=== PATIENT | male | born 1940 | race Caucasian/White ===

== ENCOUNTER 2017-11-04 16:21 | Inpatient (IN) | payer MEDICARE, OTHER ==
[2017-11-04] VITALS (13 sets, daily range): BP systolic 125–143; BP diastolic 66–86
[~2017-11-04] VITALS: Ht 172.7 cm; Wt 79.0 kg
[~2017-11-04 16:21] MED LIST: AMLO2.5T2 PO; DOCU250C4 PO; EZET10TA14 PO; HYDR-565 PO; LEVO750T21 PO; METF500T PO; PANT40TA4 PO; SENN-161 PO
[2017-11-04] MEDS ORDERED: BUPIVAcaine/PF 2.5 mg/ml (0.25%) 30ml vial ONE (17:03)
[2017-11-04] MEDS ORDERED: ceFAZolin 1000mg inj ONE ×3 (17:03→18:13)
[2017-11-04 17:37] LABS: BASOPHILS % (AUTO) 0.1 % (0-1); EOSINOPHILS # (AUTO) 0.1 X10'3 (0-0.9); EOSINOPHILS % (AUTO) 1.6 % (0-6); HEMATOCRIT 40.8 % (42.0-52.0); LYMPHOCYTES % (AUTO) 29.3 % (21-51); MEAN CORPUSCULAR HEMOGLOBIN 30.7 PG (27.0-31.0); MEAN CORPUSCULAR HGB CONC 34.3 % (33.0-36.5); MEAN CORPUSCULAR VOLUME 89.6 FL (78-98); MEAN PLATELET VOLUME 7.8 FL (7.4-10.4); MONOCYTES # (AUTO) 0.7 X10'3 (0-0.9); MONOCYTES % (AUTO) 11.1 % (2-12); NEUTROPHILS # (AUTO) 3.9 X10'3 (1.8-7.7); NEUTROPHILS % (AUTO) 57.9 % (42-75); PLATELET COUNT 224 X10'3 (140-440); RED BLOOD COUNT 4.55 X10'6 (4.70-6.10); RED CELL DISTRIBUTION WIDTH 15.2 % (11.5-14.5); WHITE BLOOD COUNT 6.7 X10'3 (4.5-11.0)
[2017-11-04 17:44] LABS: PROTHROMBIN TIME 10.3 SECONDS (9.0-12.0)
[2017-11-04 17:50] LABS: ALANINE AMINOTRANSFERASE 64 U/L (12-78); ALBUMIN 3.8 G/DL (3.4-5.0); ALKALINE PHOSPHATASE 93 IU/L (46-116); ANION GAP 11 (8-16); ASPARTATE AMINO TRANSFERASE 30 U/L (10-37); BILIRUBIN,TOTAL 1.2 MG/DL (0.1-1.0); BLOOD UREA NITROGEN 25 MG/DL (7-18); BUN/CREATININE RATIO 20.3 (5.4-32.0); CALCIUM 9.1 MG/DL (8.5-10.1); CHLORIDE 106 MMOL/L (99-107); CREATININE 1.23 MG/DL (0.60-1.10); GLUCOSE 114 MG/DL (70-104); POTASSIUM 3.7 MMOL/L (3.5-5.1); SODIUM 144 MMOL/L (135-145); TOTAL CARBON DIOXIDE 27.5 MMOL/L (24-32); TOTAL PROTEIN 7.6 G/DL (6.4-8.2); eGFR 57 ML/MIN
[2017-11-04] MEDS ORDERED: sevoflurane 250ml liquid IH ONE (17:53)
[2017-11-04] MEDS ORDERED: ePHEDrine 50MG/ML INJ. ONE (17:53)
[2017-11-04] MEDS ORDERED: fentaNYL/PF 50MCG/1 ML 2ML syringe ONE ×2 (17:54→18:36)
[2017-11-04] MEDS ORDERED: LIDOcaine 2% (20mg/ml) 5ml vial ONE (17:56)
[2017-11-04] MEDS ORDERED: dexamethasone sod phosphate 4mg/ml inj. ONE (18:13)
[2017-11-04] MEDS ORDERED: rocuronium 10mg/ml inj IV ONE (18:13)
[2017-11-04] MEDS ORDERED: propofol inj 60 ML IV ONE (18:13)
[2017-11-04] MEDS ORDERED: normal saline 1000ml 1,000 ML IV ONE (18:43)
[2017-11-04] MEDS ORDERED: HYDROmorphone inj. 0.5 MG/0.5 ML DISP.SYRIN IV PRN ×2 (18:45→21:10)
[2017-11-04] MEDS ORDERED: ondansetron/PF 4mg/2ml inj IV PRN (18:45)
[2017-11-04] MEDS ORDERED: morphine 4 MG/ML inj SYRINge IV PRN (18:45)
[2017-11-04] MEDS ORDERED: labetalol 5mg/ml 20ml inj. IV ONE (19:05)
[2017-11-04] MEDS ORDERED: ondansetron/PF 4mg/2ml inj ONE (19:05)
[2017-11-04] MEDS ORDERED: glycopyrrolate 0.2mg/ml inj ONE (19:05)
[2017-11-04] MEDS ORDERED: neostigmine methylsulfate 1 MG/ML 10ml vial ONE (19:05)
[2017-11-04] MEDS ORDERED: HYDROcodone/acetaminophen 10/325mg tab PO PRN (19:20)
[2017-11-04] MEDS ORDERED: acetaminophen 325mg tablet PO PRN ×2 (20:10→20:15)
[2017-11-04] MEDS ORDERED: HYDROmorphone 1 mg/ml syringe IV PRN (21:10)
[2017-11-04] MEDS ORDERED: HYDROmorphone inj. 0.5 MG/0.5 ML DISP.SYRIN ONE (21:49)
[2017-11-05] VITALS: BP 100/70
[2017-11-05] MEDS: ceFAZolin inj. 1,000 MG in normal saline 100ml IV soln 100 ML IV SCH ×2 (00:01→08:51)
[2017-11-05 00:10] VITALS: BP 129/69
[2017-11-05] MEDS ORDERED: HYDROmorphone inj. 0.5 MG/0.5 ML DISP.SYRIN ONE ×2 (02:15→05:55)
[2017-11-05 05:02] LABS: BASOPHILS % (AUTO) 0.3 % (0-1); EOSINOPHILS % (AUTO) 0.8 % (0-6); HEMATOCRIT 35.4 % (42.0-52.0); LYMPHOCYTES # (AUTO) 1.1 X10'3 (1.1-4.8); LYMPHOCYTES % (AUTO) 21.1 % (21-51); MEAN CORPUSCULAR HEMOGLOBIN 30.7 PG (27.0-31.0); MEAN CORPUSCULAR VOLUME 90.4 FL (78-98); MONOCYTES # (AUTO) 0.4 X10'3 (0-0.9); MONOCYTES % (AUTO) 7.4 % (2-12); NEUTROPHILS # (AUTO) 3.8 X10'3 (1.8-7.7); NEUTROPHILS % (AUTO) 70.4 % (42-75); PLATELET COUNT 183 X10'3 (140-440); RED BLOOD COUNT 3.92 X10'6 (4.70-6.10); RED CELL DISTRIBUTION WIDTH 15.6 % (11.5-14.5); WHITE BLOOD COUNT 5.4 X10'3 (4.5-11.0)
[2017-11-05 07:30] VITALS: BP 132/63
[2017-11-05 11:00] VITALS: BP 132/58
== END 2017-11-05 16:42 | disposition home or self-care (01) | DRG 352 ==
LOC: ER 16:22 → SUR 3N 19:18
PROVIDERS: ADMIT Surgery; ATTEND Surgery
PROC: 0YU54JZ Supplement Right Inguinal Region with Synthetic Substitute, Percutaneous Endoscopic Approach (ICD-10-PCS; principal; 2017-11-04 17:53)
DX: K40.30 Unilateral inguinal hernia, with obstruction, without gangrene, not specified as recurrent (principal); I10 Essential (primary) hypertension; R73.03 Prediabetes; Z90.49 Acquired absence of other specified parts of digestive tract; Z79.84 Long term (current) use of oral hypoglycemic drugs; Z79.899 Other long term (current) drug therapy; Z85.038 Personal history of other malignant neoplasm of large intestine; Z87.891 Personal history of nicotine dependence; Z85.46 Personal history of malignant neoplasm of prostate
CPT/HCPCS: 36415; 71045; 80053; 82948; 83036; 85025; 85610; 87070; A4315; A6258; C1727; C1781; J0690; J1100; J1170; J2001; J2405; J2704; J2710; J3010; J3490; J7030; J7120

== ENCOUNTER 2017-11-19 18:23 | Inpatient (IN) | payer MEDICARE, OTHER ==
[~2017-11-19] VITALS: Ht 172.7 cm; Wt 81.0 kg
[2017-11-19 19:25] LABS: BASOPHILS % (AUTO) 0.1 % (0-1); EOSINOPHILS % (AUTO) 0.2 % (0-6); HEMATOCRIT 34.5 % (42.0-52.0); HEMOGLOBIN 11.6 g/dl (14.0-17.9); LYMPHOCYTES # (AUTO) 1.4 X10'3 (1.1-4.8); LYMPHOCYTES % (AUTO) 5.7 % (21-51); MEAN CORPUSCULAR HEMOGLOBIN 30.1 PG (27.0-31.0); MEAN CORPUSCULAR HGB CONC 33.6 % (33.0-36.5); MEAN CORPUSCULAR VOLUME 89.5 FL (78-98); MEAN PLATELET VOLUME 6.9 FL (7.4-10.4); MONOCYTES # (AUTO) 0.9 X10'3 (0-0.9); MONOCYTES % (AUTO) 3.4 % (2-12); NEUTROPHILS # (AUTO) 22.4 X10'3 (1.8-7.7); NEUTROPHILS % (AUTO) 90.6 % (42-75); PLATELET COUNT 499 X10'3 (140-440); RED BLOOD COUNT 3.85 X10'6 (4.70-6.10); RED CELL DISTRIBUTION WIDTH 15.9 % (11.5-14.5); WHITE BLOOD COUNT 24.7 X10'3 (4.5-11.0)
[2017-11-19 19:37] LABS: INR 1.1 INR; PARTIAL THROMBOPLASTIN TIME 28 SECONDS (22-32); PROTHROMBIN TIME 11.6 SECONDS (9.0-12.0)
[2017-11-19] MEDS ORDERED: normal saline 1000ML IV soln IV ONE (19:40)
[2017-11-19 19:42] LABS: CLARITY,URINE SLIGHTLY CLOUDY (Clear); COLOR,URINE YELLOW (Yellow); GLUCOSE, URINE NEGATIVE (Neg); KETONES,URINE NEGATIVE (Neg); LEUKOCYTE ESTERASE ,URINE SMALL (Neg); NITRITES, URINE NEGATIVE (Neg); OCCULT BLOOD,URINE TRACE-INTACT (Neg); PROTEIN,URINE TRACE mg/dl (Neg)
[2017-11-19 19:43] LABS: UA COLLECTION TYPE CLN CATCH MIDSTREAM
[2017-11-19] MEDS ORDERED: vancomycin/NS 1 GM ADD-VANTAGE 250 ML X 1 DOSE IV ONE (19:45)
[2017-11-19 19:50] LABS: ALANINE AMINOTRANSFERASE 95 U/L (12-78); ALBUMIN 2.7 G/DL (3.4-5.0); ALBUMIN/GLOBULIN RATIO 0.6 (1.1-1.5); ALKALINE PHOSPHATASE 214 IU/L (46-116); ANION GAP 11 (8-16); ASPARTATE AMINO TRANSFERASE 45 U/L (10-37); BILIRUBIN,TOTAL 0.9 MG/DL (0.1-1.0); BLOOD UREA NITROGEN 34 MG/DL (7-18); BUN/CREATININE RATIO 14.9 (5.4-32.0); CALCIUM 9.2 MG/DL (8.5-10.1); CHLORIDE 102 MMOL/L (99-107); CREATININE 2.28 MG/DL (0.60-1.10); GLUCOSE 165 MG/DL (70-104); POTASSIUM 4.5 MMOL/L (3.5-5.1); SODIUM 139 MMOL/L (135-145); TOTAL CARBON DIOXIDE 25.9 MMOL/L (24-32); TOTAL PROTEIN 7.4 G/DL (6.4-8.2); eGFR 28 ML/MIN
[2017-11-19 19:51] LABS: RBC,URINE 0-2 /HPF (0-2); WBC,URINE 0-4 /HPF (0-4)
[2017-11-19 19:52] LABS: AMORPHOUS URATES 1+; BACTERIA,URINE FEW /HPF (Neg); HYALINE CASTS 0-3 /LPF (NEGATIVE); MUCUS STRANDS MODERATE /LPF (Neg); SQUAMOUS EPITHELIAL CELL,UR FEW /LPF (FEW)
[2017-11-19] MEDS ORDERED: piperacillin/tazo 3.375gm/50ml 50 ML IV SCH (20:00)
[2017-11-19 20:23] LABS: TOTAL CELLS COUNTED 100
[2017-11-19 20:24] LABS: ANISOCYTOSIS 1+; PLATELET ESTIMATE INCREASED
[2017-11-19] MEDS ORDERED: metoclopramide 5 mg/ml inj IV PRN (20:35)
[2017-11-19] MEDS ORDERED: morphine 4 MG/ML inj SYRINge IV PRN ×4 (20:35→21:45)
[2017-11-19] MEDS ORDERED: HYDROcodone/acetaminophen 5mg/325mg tablet PO PRN (20:35)
[2017-11-19] MEDS ORDERED: bisacodyl 10mg suppository rectal RC PRN (20:35)
[2017-11-19] MEDS ORDERED: acetaminophen 325mg tablet PO PRN ×2 (20:35)
[2017-11-19] MEDS ORDERED: diphenhydrAMINE 25mg capsule PO PRN (20:35)
[2017-11-19] MEDS ORDERED: HYDROmorphone inj. 0.5 MG/0.5 ML DISP.SYRIN IV PRN ×2 (20:35)
[2017-11-19] MEDS ORDERED: ondansetron/PF 4mg/2ml inj IV PRN ×2 (20:35→21:45)
[2017-11-19] MEDS ORDERED: diphenhydrAMINE 50 mg/ml inj IV PRN (20:35)
[2017-11-19] MEDS ORDERED: mag hydrox/Alum hydrox/simeth 30ml oral suspension PO PRN (20:35)
[2017-11-19] MEDS ORDERED: docusate sod 250mg capsule PO PRN (20:35)
[2017-11-19] MEDS ORDERED: magnesium hydroxide 30ml (MOM) UD suspension PO PRN (20:35)
[2017-11-19] MEDS ORDERED: dextrose ORAL solution 15 GM/59 ML bottle PO PRN ×2 (20:45)
[2017-11-19] MEDS ORDERED: insulin Lispro (HumaLOG) vial - multi-dose SQ SCH (20:45)
[2017-11-19] MEDS ORDERED: dextrose 50%-water 50ml dispensing syringe IV PRN ×2 (20:45)
[2017-11-19] MEDS ORDERED: MESSAGE TO PHARMACY PO ONE (20:45)
[2017-11-19] MEDS ORDERED: glucagon, human recombinant 1mg kit SUBCUT PRN (20:45)
[2017-11-19] MEDS: piperacillin/tazobactam inj. 2.25 GM in normal saline 50ml IV IV SCH (20:56)
[2017-11-19] MEDS ORDERED: temazepam 15mg capsule PO PRN (21:00)
[2017-11-19 21:05] LABS: MAGNESIUM 2.6 MG/DL (1.5-2.4); PHOSPHORUS 4.9 MG/DL (2.3-4.5)
[2017-11-19] MEDS: normal saline 1000ml 1,000 ML IV SCH (21:14)
[2017-11-19 21:17] LABS: CREATINE KINASE 40 U/L (39-308); LIPASE 103 U/L (73-393)
[2017-11-19] MEDS ORDERED: meperidine/PF 50mg/ml syringe IV PRN ×3 (21:45)
[2017-11-19] MEDS ORDERED: proCHLORperazine 10 MG/2 ml inj IV PRN (21:45)
[2017-11-19] MEDS ORDERED: ringers solution, lacted 1,000 ML IV SCH (21:45)
[2017-11-19] MEDS ORDERED: LIDOcaine 1% 30ml preserv. free vial ONE (21:47)
[2017-11-19] MEDS ORDERED: BUPIVAcaine/PF 2.5 mg/ml (0.25%) 30ml vial ONE (21:47)
[2017-11-19] MEDS ORDERED: neostigmine methylsulfate 1 MG/ML 10ml vial ONE (21:55)
[2017-11-19] MEDS ORDERED: midazolam 2 mg/2 ml injection ONE (21:55)
[2017-11-19] MEDS ORDERED: desflurane 240ml liquid inh. IH ONE (21:55)
[2017-11-19] MEDS ORDERED: fentaNYL/PF 50MCG/1 ML 2ML syringe ONE (21:55)
[2017-11-19] MEDS ORDERED: LIDOcaine 1%/PF (10mg/ml) 5ml vial ONE (22:06)
[2017-11-19] MEDS ORDERED: propofol inj 20 ML IV ONE (22:06)
[2017-11-19] MEDS ORDERED: rocuronium 10mg/ml inj IV ONE (22:07)
[2017-11-19] MEDS ORDERED: glycopyrrolate 0.2mg/ml inj ONE (22:50)
[2017-11-19 23:00] VITALS: BP 124/56
[2017-11-19 23:10] VITALS: BP 116/35
[2017-11-19 23:20] VITALS: BP 116/61
[2017-11-20] VITALS (20 sets, daily range): BP systolic 86–143; BP diastolic 46–68
[2017-11-20] MEDS: normal saline 1000ml 1,000 ML IV SCH ×2 (02:14→15:14)
[2017-11-20 05:43] LABS: BASOPHILS # (AUTO) 0.1 X10'3 (0-0.2); BASOPHILS % (AUTO) 0.5 % (0-1); EOSINOPHILS # (AUTO) 0.3 X10'3 (0-0.9); EOSINOPHILS % (AUTO) 2.3 % (0-6); HEMATOCRIT 27.2 % (42.0-52.0); HEMOGLOBIN 9.1 g/dl (14.0-17.9); LYMPHOCYTES # (AUTO) 1.4 X10'3 (1.1-4.8); LYMPHOCYTES % (AUTO) 10.3 % (21-51); MEAN CORPUSCULAR HEMOGLOBIN 30.1 PG (27.0-31.0); MEAN CORPUSCULAR HGB CONC 33.5 % (33.0-36.5); MONOCYTES # (AUTO) 0.6 X10'3 (0-0.9); MONOCYTES % (AUTO) 4.5 % (2-12); NEUTROPHILS # (AUTO) 11.4 X10'3 (1.8-7.7); NEUTROPHILS % (AUTO) 82.4 % (42-75); PLATELET COUNT 336 X10'3 (140-440); RED BLOOD COUNT 3.02 X10'6 (4.70-6.10); RED CELL DISTRIBUTION WIDTH 15.6 % (11.5-14.5); WHITE BLOOD COUNT 13.9 X10'3 (4.5-11.0)
[2017-11-20 06:11] LABS: ALANINE AMINOTRANSFERASE 60 U/L (12-78); ALBUMIN 1.9 G/DL (3.4-5.0); ALBUMIN/GLOBULIN RATIO 0.5 (1.1-1.5); ALKALINE PHOSPHATASE 175 IU/L (46-116); ANION GAP 10 (8-16); ASPARTATE AMINO TRANSFERASE 26 U/L (10-37); BILIRUBIN,TOTAL 0.6 MG/DL (0.1-1.0); BLOOD UREA NITROGEN 28 MG/DL (7-18); BUN/CREATININE RATIO 17.4 (5.4-32.0); CALCIUM 8.5 MG/DL (8.5-10.1); CHLORIDE 107 MMOL/L (99-107); CREATININE 1.61 MG/DL (0.60-1.10); GLUCOSE 124 MG/DL (70-104); POTASSIUM 4.5 MMOL/L (3.5-5.1); SODIUM 140 MMOL/L (135-145); TOTAL CARBON DIOXIDE 23.4 MMOL/L (24-32); TOTAL PROTEIN 5.5 G/DL (6.4-8.2); eGFR 42 ML/MIN
[2017-11-20] MEDS ORDERED: pneumococcal 23-VAL P-sac vacc 25 mcg/0.5ml vial IMVAC ONE (06:45)
[2017-11-20] MEDS: lactobacillus rhamnosus 10,000 MMU CELLS/CAPSULE PO SCH ×2 (07:55→20:15)
[2017-11-20] MEDS: pantoprazole 40mg Tablet.DR PO SCH (07:55)
[2017-11-20] MEDS: docusate sod 100mg capsule PO SCH ×2 (07:55→20:16)
[2017-11-20] MEDS: amLODIPine 2.5mg tablet PO SCH (08:00)
[2017-11-20] MEDS ORDERED: vancomycin/NS 1 GM ADD-VANTAGE 250 ML IV SCH (08:00)
[2017-11-20] MEDS ORDERED: piperacillin/tazo 4.5gm/100ml 100 ML IV SCH (08:00)
[2017-11-20] MEDS ORDERED: piperacillin/tazobactam inj. 2.25 GM in normal saline 50ml IV IV SCH (08:00)
[2017-11-20] MEDS: piperacillin/tazobactam inj. 2.25 GM in normal saline 50ml IV IV SCH ×4 (08:39→20:16)
[2017-11-20] MEDS: ezetimibe 10mg tablet PO SCH (08:39)
[2017-11-20] MEDS: HYDROcodone/acetaminophen 10/325mg tab PO PRN (14:57)
[2017-11-20] MEDS: vancomycin inj 1,250 MG in normal saline 250ml IV soln 250 ML IV SCH (20:16)
[2017-11-21] MEDS: HYDROcodone/acetaminophen 10/325mg tab PO PRN ×2 (00:03→15:03)
[2017-11-21] MEDS: normal saline 1000ml 1,000 ML IV SCH ×3 (01:12→22:35)
[2017-11-21] MEDS: piperacillin/tazobactam inj. 2.25 GM in normal saline 50ml IV IV SCH ×4 (02:06→20:44)
[2017-11-21 05:10] LABS: BASOPHILS % (AUTO) 0.2 % (0-1); EOSINOPHILS # (AUTO) 0.4 X10'3 (0-0.9); EOSINOPHILS % (AUTO) 3.1 % (0-6); HEMATOCRIT 27.2 % (42.0-52.0); HEMOGLOBIN 9.1 g/dl (14.0-17.9); LYMPHOCYTES # (AUTO) 1.7 X10'3 (1.1-4.8); LYMPHOCYTES % (AUTO) 14.9 % (21-51); MEAN CORPUSCULAR HEMOGLOBIN 30.2 PG (27.0-31.0); MEAN CORPUSCULAR HGB CONC 33.6 % (33.0-36.5); MEAN CORPUSCULAR VOLUME 89.7 FL (78-98); MONOCYTES # (AUTO) 0.5 X10'3 (0-0.9); MONOCYTES % (AUTO) 3.9 % (2-12); NEUTROPHILS # (AUTO) 9.1 X10'3 (1.8-7.7); NEUTROPHILS % (AUTO) 77.9 % (42-75); PLATELET COUNT 348 X10'3 (140-440); RED BLOOD COUNT 3.03 X10'6 (4.70-6.10); RED CELL DISTRIBUTION WIDTH 15.8 % (11.5-14.5); WHITE BLOOD COUNT 11.6 X10'3 (4.5-11.0)
[2017-11-21 05:33] LABS: ALANINE AMINOTRANSFERASE 48 U/L (12-78); ALBUMIN 1.8 G/DL (3.4-5.0); ALBUMIN/GLOBULIN RATIO 0.5 (1.1-1.5); ALKALINE PHOSPHATASE 148 IU/L (46-116); ANION GAP 9 (8-16); ASPARTATE AMINO TRANSFERASE 18 U/L (10-37); BILIRUBIN,TOTAL 0.3 MG/DL (0.1-1.0); BLOOD UREA NITROGEN 22 MG/DL (7-18); BUN/CREATININE RATIO 17.2 (5.4-32.0); CALCIUM 8.4 MG/DL (8.5-10.1); CHLORIDE 108 MMOL/L (99-107); CREATININE 1.28 MG/DL (0.60-1.10); GLUCOSE 108 MG/DL (70-104); POTASSIUM 4.5 MMOL/L (3.5-5.1); SODIUM 141 MMOL/L (135-145); TOTAL CARBON DIOXIDE 24.3 MMOL/L (24-32); TOTAL PROTEIN 5.5 G/DL (6.4-8.2); eGFR 54 ML/MIN
[2017-11-21] MEDS: ezetimibe 10mg tablet PO SCH (09:15)
[2017-11-21] MEDS: lactobacillus rhamnosus 10,000 MMU CELLS/CAPSULE PO SCH ×2 (09:16→20:44)
[2017-11-21] MEDS: pantoprazole 40mg Tablet.DR PO SCH (09:16)
[2017-11-21] MEDS: amLODIPine 2.5mg tablet PO SCH (09:16)
[2017-11-21] MEDS: docusate sod 100mg capsule PO SCH ×2 (09:16→20:44)
[2017-11-21 11:00] VITALS: BP 135/77
[2017-11-21] MEDS ORDERED: LOSA25TA21 (17:14)
[2017-11-21 19:30] VITALS: BP 172/80
[2017-11-21] MEDS: vancomycin inj 1,250 MG in normal saline 250ml IV soln 250 ML IV SCH (21:20)
[2017-11-22] VITALS: BP 145/71
[2017-11-22] MEDS: piperacillin/tazobactam inj. 2.25 GM in normal saline 50ml IV IV SCH ×4 (01:54→20:26)
[2017-11-22] MEDS: normal saline 1000ml 1,000 ML IV SCH ×2 (04:41→15:54)
[2017-11-22 05:07] LABS: BASOPHILS % (AUTO) 0.3 % (0-1); EOSINOPHILS # (AUTO) 0.3 X10'3 (0-0.9); EOSINOPHILS % (AUTO) 3.4 % (0-6); HEMATOCRIT 29.5 % (42.0-52.0); HEMOGLOBIN 9.8 g/dl (14.0-17.9); LYMPHOCYTES # (AUTO) 1.6 X10'3 (1.1-4.8); LYMPHOCYTES % (AUTO) 15.8 % (21-51); MEAN CORPUSCULAR HEMOGLOBIN 29.7 PG (27.0-31.0); MEAN CORPUSCULAR HGB CONC 33.3 % (33.0-36.5); MEAN CORPUSCULAR VOLUME 89.3 FL (78-98); MEAN PLATELET VOLUME 6.9 FL (7.4-10.4); MONOCYTES # (AUTO) 0.5 X10'3 (0-0.9); MONOCYTES % (AUTO) 4.8 % (2-12); NEUTROPHILS # (AUTO) 7.7 X10'3 (1.8-7.7); NEUTROPHILS % (AUTO) 75.7 % (42-75); PLATELET COUNT 366 X10'3 (140-440); RED BLOOD COUNT 3.31 X10'6 (4.70-6.10); RED CELL DISTRIBUTION WIDTH 15.9 % (11.5-14.5); WHITE BLOOD COUNT 10.2 X10'3 (4.5-11.0)
[2017-11-22] MEDS: HYDROcodone/acetaminophen 10/325mg tab PO PRN ×2 (05:19→15:52)
[2017-11-22 05:33] LABS: ALANINE AMINOTRANSFERASE 50 U/L (12-78); ALBUMIN 1.9 G/DL (3.4-5.0); ALBUMIN/GLOBULIN RATIO 0.5 (1.1-1.5); ALKALINE PHOSPHATASE 148 IU/L (46-116); ANION GAP 9 (8-16); ASPARTATE AMINO TRANSFERASE 30 U/L (10-37); BILIRUBIN,TOTAL 0.4 MG/DL (0.1-1.0); BLOOD UREA NITROGEN 24 MG/DL (7-18); BUN/CREATININE RATIO 16.6 (5.4-32.0); CALCIUM 8.6 MG/DL (8.5-10.1); CHLORIDE 107 MMOL/L (99-107); CREATININE 1.45 MG/DL (0.60-1.10); GLUCOSE 99 MG/DL (70-104); POTASSIUM 3.8 MMOL/L (3.5-5.1); SODIUM 142 MMOL/L (135-145); TOTAL CARBON DIOXIDE 25.6 MMOL/L (24-32); TOTAL PROTEIN 5.9 G/DL (6.4-8.2); eGFR 47 ML/MIN
[2017-11-22] MEDS: ezetimibe 10mg tablet PO SCH (09:02)
[2017-11-22] MEDS: pantoprazole 40mg Tablet.DR PO SCH (09:02)
[2017-11-22] MEDS: lactobacillus rhamnosus 10,000 MMU CELLS/CAPSULE PO SCH ×2 (09:02→20:26)
[2017-11-22] MEDS: amLODIPine 2.5mg tablet PO SCH (09:02)
[2017-11-22] MEDS: docusate sod 100mg capsule PO SCH ×2 (09:08→20:26)
[2017-11-22 12:00] VITALS: BP 146/69
[2017-11-22 20:00] VITALS: BP 160/73
[2017-11-22] MEDS: vancomycin inj 1,250 MG in normal saline 250ml IV soln 250 ML IV SCH (21:12)
[2017-11-23] VITALS: BP 140/68
[2017-11-23] MEDS: piperacillin/tazobactam inj. 2.25 GM in normal saline 50ml IV IV SCH ×2 (02:36→08:20)
[2017-11-23 05:06] LABS: BASOPHILS % (AUTO) 0.2 % (0-1); EOSINOPHILS # (AUTO) 0.4 X10'3 (0-0.9); EOSINOPHILS % (AUTO) 4.2 % (0-6); HEMATOCRIT 29.4 % (42.0-52.0); HEMOGLOBIN 9.8 g/dl (14.0-17.9); LYMPHOCYTES # (AUTO) 1.6 X10'3 (1.1-4.8); LYMPHOCYTES % (AUTO) 17.6 % (21-51); MEAN CORPUSCULAR HEMOGLOBIN 30.2 PG (27.0-31.0); MEAN CORPUSCULAR HGB CONC 33.4 % (33.0-36.5); MEAN CORPUSCULAR VOLUME 90.4 FL (78-98); MEAN PLATELET VOLUME 6.8 FL (7.4-10.4); MONOCYTES # (AUTO) 0.5 X10'3 (0-0.9); MONOCYTES % (AUTO) 5.2 % (2-12); NEUTROPHILS # (AUTO) 6.6 X10'3 (1.8-7.7); NEUTROPHILS % (AUTO) 72.8 % (42-75); PLATELET COUNT 349 X10'3 (140-440); RED BLOOD COUNT 3.25 X10'6 (4.70-6.10); RED CELL DISTRIBUTION WIDTH 15.6 % (11.5-14.5)
[2017-11-23 05:24] LABS: ALANINE AMINOTRANSFERASE 52 U/L (12-78); ALBUMIN/GLOBULIN RATIO 0.5 (1.1-1.5); ALKALINE PHOSPHATASE 145 IU/L (46-116); ANION GAP 10 (8-16); ASPARTATE AMINO TRANSFERASE 36 U/L (10-37); BILIRUBIN,TOTAL 0.3 MG/DL (0.1-1.0); BLOOD UREA NITROGEN 20 MG/DL (7-18); BUN/CREATININE RATIO 15.5 (5.4-32.0); CALCIUM 8.7 MG/DL (8.5-10.1); CHLORIDE 108 MMOL/L (99-107); CREATININE 1.29 MG/DL (0.60-1.10); GLUCOSE 108 MG/DL (70-104); POTASSIUM 3.9 MMOL/L (3.5-5.1); SODIUM 143 MMOL/L (135-145); TOTAL CARBON DIOXIDE 25.1 MMOL/L (24-32); TOTAL PROTEIN 5.9 G/DL (6.4-8.2); eGFR 54 ML/MIN
[2017-11-23] MEDS: normal saline 1000ml 1,000 ML IV SCH ×2 (05:41→15:10)
[2017-11-23 07:18] VITALS: BP 149/82
[2017-11-23] MEDS: amLODIPine 2.5mg tablet PO SCH (08:16)
[2017-11-23] MEDS: lactobacillus rhamnosus 10,000 MMU CELLS/CAPSULE PO SCH ×2 (08:18→20:58)
[2017-11-23] MEDS: ezetimibe 10mg tablet PO SCH (08:18)
[2017-11-23] MEDS: pantoprazole 40mg Tablet.DR PO SCH (08:18)
[2017-11-23] MEDS: docusate sod 100mg capsule PO SCH ×2 (08:18→20:58)
[2017-11-23 13:38] VITALS: BP 168/87
[2017-11-23] MEDS ORDERED: piperacillin/tazo 3.375gm/50ml 50 ML IV SCH (14:00)
[2017-11-23] MEDS: CefTRIAXone 2gm/D5W 50ml 50 ML IV SCH (17:11)
[2017-11-23 17:40] VITALS: BP 146/76
[2017-11-23] MEDS ORDERED: VANCOMYCIN LEVEL IV ONE (19:30)
[2017-11-23 20:00] VITALS: BP 138/70
[2017-11-23] MEDS: metroNIDAZOLE 500mg tablet PO SCH (20:58)
[2017-11-24] VITALS: BP 147/81
[2017-11-24] MEDS: normal saline 1000ml 1,000 ML IV SCH ×3 (00:35→14:59)
[2017-11-24 05:35] LABS: BASOPHILS % (AUTO) 0.4 % (0-1); EOSINOPHILS # (AUTO) 0.3 X10'3 (0-0.9); EOSINOPHILS % (AUTO) 2.5 % (0-6); HEMATOCRIT 28.5 % (42.0-52.0); HEMOGLOBIN 9.7 g/dl (14.0-17.9); LYMPHOCYTES # (AUTO) 1.6 X10'3 (1.1-4.8); LYMPHOCYTES % (AUTO) 15.1 % (21-51); MEAN CORPUSCULAR HEMOGLOBIN 29.9 PG (27.0-31.0); MEAN CORPUSCULAR VOLUME 87.9 FL (78-98); MEAN PLATELET VOLUME 6.5 FL (7.4-10.4); MONOCYTES # (AUTO) 0.6 X10'3 (0-0.9); MONOCYTES % (AUTO) 5.1 % (2-12); NEUTROPHILS # (AUTO) 8.4 X10'3 (1.8-7.7); NEUTROPHILS % (AUTO) 76.9 % (42-75); PLATELET COUNT 337 X10'3 (140-440); RED BLOOD COUNT 3.24 X10'6 (4.70-6.10); RED CELL DISTRIBUTION WIDTH 15.5 % (11.5-14.5); WHITE BLOOD COUNT 10.9 X10'3 (4.5-11.0)
[2017-11-24 05:49] LABS: ALANINE AMINOTRANSFERASE 50 U/L (12-78); ALBUMIN 2.1 G/DL (3.4-5.0); ALBUMIN/GLOBULIN RATIO 0.5 (1.1-1.5); ALKALINE PHOSPHATASE 129 IU/L (46-116); ANION GAP 11 (8-16); ASPARTATE AMINO TRANSFERASE 30 U/L (10-37); BILIRUBIN,TOTAL 0.3 MG/DL (0.1-1.0); BLOOD UREA NITROGEN 20 MG/DL (7-18); CALCIUM 8.7 MG/DL (8.5-10.1); CHLORIDE 110 MMOL/L (99-107); CREATININE 1.11 MG/DL (0.60-1.10); GLUCOSE 110 MG/DL (70-104); POTASSIUM 3.6 MMOL/L (3.5-5.1); SODIUM 143 MMOL/L (135-145); TOTAL CARBON DIOXIDE 21.9 MMOL/L (24-32); TOTAL PROTEIN 6.1 G/DL (6.4-8.2); eGFR 64 ML/MIN
[2017-11-24] MEDS: lactobacillus rhamnosus 10,000 MMU CELLS/CAPSULE PO SCH ×2 (07:40→20:05)
[2017-11-24] MEDS: CefTRIAXone 2gm/D5W 50ml 50 ML IV SCH (07:40)
[2017-11-24] MEDS: amLODIPine 2.5mg tablet PO SCH (07:42)
[2017-11-24] MEDS: docusate sod 100mg capsule PO SCH ×2 (07:42→20:05)
[2017-11-24] MEDS: ezetimibe 10mg tablet PO SCH (07:42)
[2017-11-24] MEDS: metroNIDAZOLE 500mg tablet PO SCH ×3 (07:42→20:05)
[2017-11-24] MEDS: pantoprazole 40mg Tablet.DR PO SCH (07:43)
[2017-11-24 08:00] VITALS: BP 139/76
[2017-11-24 11:46] VITALS: BP 132/72
[2017-11-24 20:00] VITALS: BP 129/76
[2017-11-24 23:48] VITALS: BP 134/75
[2017-11-25] MEDS: normal saline 1000ml 1,000 ML IV SCH (00:23)
[2017-11-25] MEDS: docusate sod 100mg capsule PO SCH (08:00)
[2017-11-25] MEDS: amLODIPine 2.5mg tablet PO SCH (08:20)
[2017-11-25] MEDS: metroNIDAZOLE 500mg tablet PO SCH (08:20)
[2017-11-25] MEDS: lactobacillus rhamnosus 10,000 MMU CELLS/CAPSULE PO SCH (08:20)
[2017-11-25] MEDS: CefTRIAXone 2gm/D5W 50ml 50 ML IV SCH (08:20)
[2017-11-25] MEDS: pantoprazole 40mg Tablet.DR PO SCH (08:21)
[2017-11-25] MEDS: ezetimibe 10mg tablet PO SCH (08:24)
[2017-11-25 08:33] VITALS: BP 144/75
[2017-11-25 12:37] LABS: BASOPHILS % (AUTO) 0.4 % (0-1); EOSINOPHILS # (AUTO) 0.3 X10'3 (0-0.9); EOSINOPHILS % (AUTO) 2.9 % (0-6); HEMATOCRIT 33.9 % (42.0-52.0); HEMOGLOBIN 11.1 g/dl (14.0-17.9); LYMPHOCYTES # (AUTO) 1.8 X10'3 (1.1-4.8); MEAN CORPUSCULAR HEMOGLOBIN 29.4 PG (27.0-31.0); MEAN CORPUSCULAR HGB CONC 32.8 % (33.0-36.5); MEAN CORPUSCULAR VOLUME 89.7 FL (78-98); MEAN PLATELET VOLUME 6.9 FL (7.4-10.4); MONOCYTES # (AUTO) 0.6 X10'3 (0-0.9); NEUTROPHILS # (AUTO) 8.4 X10'3 (1.8-7.7); NEUTROPHILS % (AUTO) 75.7 % (42-75); PLATELET COUNT 326 X10'3 (140-440); RED BLOOD COUNT 3.78 X10'6 (4.70-6.10); RED CELL DISTRIBUTION WIDTH 15.9 % (11.5-14.5); WHITE BLOOD COUNT 11.1 X10'3 (4.5-11.0)
[2017-11-25 12:45] LABS: ALBUMIN 2.4 G/DL (3.4-5.0); ANION GAP 11 (8-16); BLOOD UREA NITROGEN 20 MG/DL (7-18); BUN/CREATININE RATIO 17.2 (5.4-32.0); CALCIUM 8.9 MG/DL (8.5-10.1); CHLORIDE 109 MMOL/L (99-107); CREATININE 1.16 MG/DL (0.60-1.10); GLUCOSE 100 MG/DL (70-104); POTASSIUM 3.7 MMOL/L (3.5-5.1); SODIUM 143 MMOL/L (135-145); TOTAL CARBON DIOXIDE 23.1 MMOL/L (24-32); eGFR 61 ML/MIN
[2017-11-25] MEDS ORDERED: METR500T4 PO (12:47)
[2017-11-25] MEDS ORDERED: CEFD300C3 PO (12:47)
== END 2017-11-25 13:50 | disposition home health service (06) | DRG 907 ==
LOC: ER 18:24 → ED HOLD 20:35 → ICU 2S 22:38 → SUR 3N 11-20 21:27
PROVIDERS: ADMIT Family Medicine; ATTEND Internal Medicine
PROC: 0WPF0JZ Removal of Synthetic Substitute from Abdominal Wall, Open Approach (ICD-10-PCS; principal; 2017-11-19 21:55)
DX: T85.79XA Infection and inflammatory reaction due to other internal prosthetic devices, implants and grafts, initial encounter (principal); A41.9 Sepsis, unspecified organism; N17.1 Acute kidney failure with acute cortical necrosis; K65.1 Peritoneal abscess; L03.311 Cellulitis of abdominal wall; N39.0 Urinary tract infection, site not specified; I12.9 Hypertensive chronic kidney disease with stage 1 through stage 4 chronic kidney disease, or unspecified chronic kidney disease; E11.22 Type 2 diabetes mellitus with diabetic chronic kidney disease; N18.9 Chronic kidney disease, unspecified; E11.65 Type 2 diabetes mellitus with hyperglycemia; E86.0 Dehydration; E78.5 Hyperlipidemia, unspecified; I25.10 Atherosclerotic heart disease of native coronary artery without angina pectoris; R74.0 Nonspecific elevation of levels of transaminase and lactic acid dehydrogenase [LDH]; B95.5 Unspecified streptococcus as the cause of diseases classified elsewhere; B96.20 Unspecified Escherichia coli [E. coli] as the cause of diseases classified elsewhere; Y83.2 Surgical operation with anastomosis, bypass or graft as the cause of abnormal reaction of the patient, or of later complication, without mention of misadventure at the time of the procedure; Z90.49 Acquired absence of other specified parts of digestive tract; Z79.899 Other long term (current) drug therapy; Z85.038 Personal history of other malignant neoplasm of large intestine; Z85.46 Personal history of malignant neoplasm of prostate; Z80.1 Family history of malignant neoplasm of trachea, bronchus and lung; Z80.41 Family history of malignant neoplasm of ovary
CPT/HCPCS: 36415; 71045; 74176; 80048; 80053; 80202; 81001; 82550; 82948; 83605; 83690; 83735; 83880; 84100; 84145; 85025; 85610; 85730; 87040; 87070; 87075; 87076; 87077; 87088; 87185; 87186; 88304; 90732; 94668; 96361; 96374; 99291; A4649; A6213; A6253; A6255; A6258; A6446; A6449; A7000; C1758; J0696; J2001; J2250; J2543; J2704; J2710; J3010; J3370; J3490; J7030; J7120